=== PATIENT | female | born 1965 | race Caucasian/White ===

== ENCOUNTER 2020-06-10 14:02 | Emergency (ER) | payer OTHER ==
[~2020-06-10] VITALS: Ht 172.7 cm; Wt 139.3 kg
[~2020-06-10 14:02] MED LIST: EXCEDRIN CAPLE1 EACH PO; HYDROCODON-ACE1 EAC8 PO; LEVOTHYROXINE 0.15MG PO; PROMS25 WY RECTAL; TUMS PO
[2020-06-10] MEDS ORDERED: SYNTHROID137 MC1 PO (14:20)
[2020-06-10 16:01] LABS: URINE BILIRUBIN NEGATIVE (Negative); URINE BLOOD TRACE (Negative); URINE COLOR YELLOW; URINE GLUCOSE-RANDOM* NEGATIVE (Negative); URINE KETONES NEGATIVE (Negative); URINE PROTEIN (DIPSTICK) TRACE (Negative); URINE UROBILINOGEN 0.2 E.U./dl (0.2-1.0)
[2020-06-10 16:09] LABS: URINE LEUKOCYTES-REFLEX 1+ (Negative); URINE NITRITE-REFLEX POSITIVE (Negative)
[2020-06-10 16:10] LABS: URINE CLARITY SL HAZY
[2020-06-10 16:17] LABS: BACTERIA-REFLEX >30 Many /HPF (None Seen); CASTS None Seen /LPF (None Seen); CRYSTALS None Seen /LPF (None Seen); SQUAMOUS 4-10 Moderate /LPF (0-3); URINE RBC 0-2 Rare /HPF (0-2); URINE WBC-REFLEX 6-15 Few /HPF (0-5)
[2020-06-10 17:04] LABS: BASOPHILS 1.8 % (0.0-2.0); HEMATOCRIT 49.4 % (37.0-47.0); HEMOGLOBIN 16.4 gm/dL (12.0-15.0); LYMPHOCYTES 16.8 % (24.0-44.0); MCH 30.4 pg (26.0-34.0); MCHC 33.3 g/dL (28.0-37.0); MCV 91.4 fL (80.0-100.0); PLATELET COUNT 136 thou/uL (150-400); POLYS 72.4 % (36.0-66.0); RBC 5.41 mil/uL (4.20-5.00); RDW 13.4 % (10.5-14.5); WBC 4.1 thou/uL (4.0-11.0)
[2020-06-10] MEDS ORDERED: PREDNISONE10 MG PO (17:04)
[2020-06-10] MEDS ORDERED: TESSALON PERLE100 MG PO (17:04)
[2020-06-10] MEDS ORDERED: DOXYCYCLINE 10100 MG PO (17:04)
[2020-06-10 17:18] LABS: APTT 21.5 Seconds (24.5-32.8); D-DIMER 0.47 ug/mLFEU (0.19-0.50); INR 1.1; PROTIME 10.8 Seconds (9.3-11.4)
[2020-06-10 19:00] VITALS: BP 151/70
[2020-06-10 19:10] LABS: ANION GAP 8 mmol/L (7-16); BUN 19 mg/dL (7-18); CALCIUM 8.6 mg/dL (8.5-10.1); CHLORIDE 105 mmol/L (98-107); CO2 25 mmol/L (21-32); CREATININE 0.9 mg/dL (0.6-1.0); GLUCOSE 102 mg/dL (74-106); POTASSIUM 4.2 mmol/L (3.5-5.1); SODIUM 138 mmol/L (136-145)
[2020-06-10 19:19] LABS: ALBUMIN 3.4 g/dL (3.4-5.0); MAGNESIUM 2.1 mg/dL (1.8-2.4); SGOT 34 U/L (15-37); SGPT 34 U/L (14-59); TOTAL BILIRUBIN 0.6 mg/dL (0.2-1.0); TOTAL PROTEIN 6.7 g/dL (6.4-8.2); TROPONIN-I <0.06 ng/mL (<0.06)
--- NOTE | 2020-06-11 15:13 | EKG ---
[facility] [address] [employer] [place] [address] ELECTROCARDIOGRAM REPORT Name: CLAUDETTE COSTELLO Room #: DEP [facility]#: [id number] Admission: 06/10/20 Attend Phys: Discharge: 06/10/20 Date of : 61 Report #: [id number] [facility] ED Test Date: 2020-06-10 Test Time: 15:39:26 Pat Name: CLAUDETTE COSTELLO Department: Room: Gender: F Emt B: : 1965 Requested By: Duran Andrews Order Number: [id number] MD: Elijah Cam Measurements Intervals [place] Rate: 95 P: 7 MO: 135 QRS: -15 QRSD: 92 T: 103 QT: 347 QTc: 436 Interpretive Statements Sinus rhythm Abnormal R-wave progression, late transition Compared to ECG 09/28/2015 11:11:[address] segment abnormality is now present Electronically Signed On 06-11-2020 15:13:30 [employer] by Elijah Cam [email or web address] <ELECTRONICALLY SIGNED> By: Elijah Cam MD, [facility] 06/11/20 1513 1539 1539 Elijah Cam MD, FACC /EPI
== END 2020-06-10 19:11 | disposition home or self-care (01) ==
LOC: ER 14:02
PROVIDERS: Emergency Medicine
DX: U07.1 COVID-19 (principal); J18.9 Pneumonia, unspecified organism; N39.0 Urinary tract infection, site not specified; Z79.82 Long term (current) use of aspirin; Z79.899 Other long term (current) drug therapy